=== PATIENT | male | born 1985 | race Caucasian/White ===

== ENCOUNTER → 2017-06-14 | Outpatient (CLI) | payer BC | LOC: FIMAGING 12:13 | PROVIDERS: ATTEND Family Medicine | DX: R07.89 Other chest pain (principal) ==

== ENCOUNTER → 2017-06-24 | Outpatient (CLI) | payer BC | LOC: FIMAGING 09:38 | PROVIDERS: ATTEND Surgery | DX: Q67.7 Pectus carinatum (principal); R93.7 Abnormal findings on diagnostic imaging of other parts of musculoskeletal system ==

== ENCOUNTER → 2017-06-28 | Outpatient (CLI) | payer BC | LOC: FIMAGING 15:52 | PROVIDERS: ATTEND Surgery | DX: Z09 Encounter for follow-up examination after completed treatment for conditions other than malignant neoplasm (principal); Q67.7 Pectus carinatum ==

== ENCOUNTER 2017-07-29 11:50 | Observation (INO) | payer BC ==
[2017-07-29] MEDS ORDERED: LR 1,000 ML IV ONE (14:19)
[2017-07-29] MEDS ORDERED: LIDOCAINE 1% 2 ML INJ ID PRN (14:19)
[2017-07-29] MEDS ORDERED: BUPIVACAINE 0.5% 30 ML SDV ONE (14:47)
--- NOTE | 2017-07-29 17:01 | PDHPUP ---
History & Physical Update H&P update statement: This history and physical update is based on an assessment of the patient which was completed after admission or registration (within 24 hours), but prior to the surgery/procedure. H&P update: H&P reviewed & patient examined, no change in patient's condition since H&P completed
--- NOTE | 2017-07-29 17:15 | PDANEPAE ---
ANE History of Present Illness Patient presents for right rib resection ANE Past Medical History - Cardiovascular History Hx Hypertension: No Hx Arrhythmias: No Hx Chest Pain: No Hx Coronary Artery / Peripheral Vascular Disease: No Hx CHF / Valvular Disease: No Hx Palpitations: No - Pulmonary History Hx COPD: No Hx Asthma/Reactive Airway Disease: Yes Hx Recent Upper Respiratory Infection: No Hx Oxygen in Use at Home: No Hx Sleep Apnea: No Sleep Apnea Screening Result - Last Documented: Negative Pulmonary History Comment: asthma- uses inhaler- instructed pt to bring to hospital. previous chest surgery for pectus carinatum - Neurologic History Hx Cerebrovascular Accident: No Hx Seizures: No Hx Dementia: No - Endocrine History Hx Diabetes: No - Liver History Hx Hepatic Disorders: No - Neurological & Psychiatric Hx Hx Neurological and Psychiatric Disorders: No - Cancer History Hx Cancer: No - Congenital Disorder History Hx Congenital Disorders: No - GI History Hx Gastrointestinal Disorders: No - Other Health History Other Health History: none - Chronic Pain History Chronic Pain: Yes (chest pain) - Surgical History Prior Surgeries: previous chest surgery in 2004 for pectus carinatum ANE Review of Systems Review of Systems: - Exercise capacity Exercise capacity: >=4 METS METS (RN): 4 METS ANE Patient History - Allergies Allergies/Adverse Reactions: wheat Allergy (Verified 07/29/17 14:28) Other-Enter Comments - Home Medications Home medications: home medication list seen and reviewed Home Medications: Albuterol [Proventil Inhaler HFA (*)] 1 - 2 puffs IH Q4 PRN 07/19/17 [Last Taken 07/22/17] Ferrous Sulfate [Ferrous Sulf 325 MG (*)] 325 mg PO DAILY 07/19/17 [Last Taken 07/22/17] Multivitamins [Multivitamin (*)] 1 each PO DAILY 07/19/17 [Last Taken 07/22/17] [place]-3 Fatty Acids [Fish Oil 1000 mg (*)] 1,000 mg PO DAILY 07/19/17 [Last Taken 07/22/17] - NPO status NPO Status: no food or drink >8 hours NPO Since - Liquids (Date): 07/29/17 NPO Since - Liquids (Time): 09:00 NPO Since - Solids (Date): 07/28/17 NPO Since - Solids (Time): 20:00 - Anes Hx Anes Hx: no prior problems - Smoking Hx Smoking Status: Never smoked - Family Anes Hx Family Hx Anesthesia Complications: none ANE Labs/Vital Signs - Vital Signs Blood Pressure: 163/96 Heart Rate: 77 Respiratory Rate: 18 O2 Sat (%): 98 Height: 185.42 cm Weight: 95.254 kg ANE Physical Exam - Airway Neck exam: FROM Mallampati Score: Class 1 - Pulmonary Pulmonary: no respiratory distress - Cardiovascular Cardiovascular: regular rate and rhythym - ASA Status ASA Status: II ANE Anesthesia Plan Anesthesia Plan: general endotracheal anesthesia (RBA discussed)
[2017-07-29] MEDS ORDERED: ONDANSETRON 4 MG/2 ML VIAL IVP PRN ×2 (17:47→19:21)
[2017-07-29] MEDS ORDERED: ZOLPIDEM TARTRATE 5 MG TAB PO PRN (17:47)
[2017-07-29] MEDS ORDERED: ALBUTEROL 60 PUFFS/8 GM MDI IH PRN (17:49)
[2017-07-29] MEDS ORDERED: fentaNYL 100 MCG/2 ML INJ ONE ×2 (17:51→18:41)
[2017-07-29] MEDS ORDERED: PROPOFOL 200 MG/20 ML VIAL ONE ×2 (17:51→18:10)
--- NOTE | 2017-07-29 17:51 | POSTOPPROG ---
Post Op Note Date of Operation: 07/29/17 Surgeon: Jensen Izaguirre Anesthesiologist: Fran Day Anesthesia: GET(General Endotracheal) Pre-op Diagnosis: pectus carinatum Post-op Diagnosis: same Indication: painful rib nonunion Procedure: left chest partial rib resection, multi ICN block Inf/Abcess present in the surg proc area at time of surgery?: No EBL: Minimal Specimen(s): none
[2017-07-29] MEDS ORDERED: ROCURONIUM 50 MG/5 ML VIAL ONE (17:53)
[2017-07-29] MEDS ORDERED: LIDOCAINE 2% 5 ML SDV ONE (17:53)
[2017-07-29] MEDS ORDERED: PROPOFOL/EMULSION 500 MG/50 ML BOTTLE IV ONE (18:17)
[2017-07-29] MEDS ORDERED: fentaNYL 100 MCG/2 ML INJ IVP PRN (19:21)
[2017-07-29] MEDS ORDERED: oxyCODONE IR 5 MG TAB PO PRN (19:21)
[2017-07-29] MEDS ORDERED: HYDROCODONE/APAP 5/325 TAB PO PRN (19:21)
[2017-07-29] MEDS ORDERED: NALOXONE HCL 0.4 MG/ML INJ IVP PRN (19:21)
[2017-07-29] MEDS ORDERED: LR 500 ML IV PRN (19:21)
[2017-07-29] MEDS ORDERED: DEXAMETHASONE 4 MG/ML VIAL ONE (19:24)
[2017-07-29] MEDS ORDERED: ONDANSETRON 4 MG/2 ML VIAL ONE (19:24)
[2017-07-29] MEDS ORDERED: KETOROLAC 30 MG/1 ML SDV ONE (19:24)
[2017-07-29] MEDS ORDERED: SUGAMMADEX SODIUM 200 MG/2 ML VIAL IVP ONE (19:25)
--- NOTE | 2017-07-29 19:57 | POSTANESTH ---
Post Anesthetic Evaluation Cardiovascular Status: Similar to Pre-Op Cond Respiratory Status: Similar to Pre-op Cond. Level of Consciousness/Mental Status: Moderately Sleepy Pain Control: Adequate, Prn Tx Ordered Nausea/Vomiting Control: Adequate, Prn Tx Ordered Complications Possibly Related to Anesthesia: None Noted
[2017-07-29] MEDS: HYDROmorphone HCL/NS 0.5 MG/ML SYR IVP PRN ×2 (21:11→22:21)
[2017-07-29] MEDS: KETOROLAC 15 MG/1 ML SDV IVP SCH ×2 (21:32→23:24)
[2017-07-30] MEDS: HYDROmorphone HCL/NS 0.5 MG/ML SYR IVP PRN ×2 (01:35)
[2017-07-30] MEDS: KETOROLAC 15 MG/1 ML SDV IVP SCH ×2 (05:19→10:58)
--- NOTE | 2017-07-30 07:06 | GOP ---
[f rep st] OPERATIVE REPORT DATE OF OPERATION: 07/29/2017 SURGEON: Jensen Izaguirre MD ANESTHESIA: General. ANESTHESIOLOGIST: Dr. Alcala. PREOPERATIVE DIAGNOSIS: Pectus carinatum. POSTOPERATIVE DIAGNOSIS: Pectus carinatum. PROCEDURE PERFORMED: Partial rib resection, multilevel intercostal nerve block, bone autograft place ment. FINDINGS: INDICATIONS: A 31-year-old male with a significant history for a pectus carinatum. He underwent ope n repair many years ago. 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 He is undergoing a partial rib resecti on at this time. Surgical risks and benefits explained were bleeding, infection, failure to resolve symptoms, epigastric hernia formation, chest wall instability, pneumothorax, pericardial injury, as w ell as others. All questions were answered. He desires to proceed. DESCRIPTION OF PROCEDURE: General anesthesia was induced. The lower sternum was infiltrated with 0. 5% Marcaine. The prior incision was reopened and extended inferiorly. The pec major muscle was sepa rated off the sternum. The upper portion of the midline fascia overlying the reconstructed xiphoid p rocess was partially opened using an elevator, soft tissues are off the lower most sternum as well as left parasternal bony constructs. The patient's lower most rib segments had a common orig in at the lower sternum. There was evidence of old suture material here. With blunt palpation this segment of bone was noted to be flail and non-joined as the ribs coursed inferolateral. There was al so overlap of the bifid xiphoid remnants that also overlapped those rib segments. The xiphoid was co mpletely taken back using a rongeur to the bifurcation of the parasternal rib borders. The lower mos t rib construct was circumferentially encompassed, with neurovascular bundle was left behind and usin g a rongeur a 2 cm separation was left between the sternal edge and the lower segment rib panel. Sat isfactory hemostasis was assured. The pericardium and pleura were not violated at any points nor was the abdominal cavity but was presumed to be all overlapping segments were felt have been completely decompressed. All residual bone fragment was all broken up and replaced into the voids to act as a b one autograft. A multilevel intercostal nerve block was applied throughout the lower chest wall. Th e wound was closed in layers with Vicryl suture. The skin was closed with Monocryl suture followed b y Dermabond. The patient was extubated in the operating room and taken to recovery uneventfully. /[id number]/MODL
[2017-07-30] MEDS: oxyCODONE IR 5 MG TAB PO PRN ×3 (08:15→12:13)
[2017-07-30] MEDS ORDERED: OMEGA-3 FATTY ACIDS 1,000 MG CAP PO SCH (09:00)
[2017-07-30] MEDS ORDERED: MULTIVITAMINS 1 EACH TAB PO SCH (09:00)
[2017-07-30] MEDS ORDERED: FERROUS SULFATE 325 MG TAB PO SCH (09:00)
[2017-07-30 10:20] VITALS: BP 134/88
--- NOTE | 2017-07-30 10:23 | SOAPPROG ---
SOAP Progress Note Assessment/Plan: Assessment:no overnight events. pain controlled. no sob. avss. comfortable. incis clean. doing well. home today. Plan: 07/30/17 10:22 Objective: Vital Signs Temp Pulse Resp BP Pulse Ox 37.3 C 69 18 134/88 H 94 07/30/17 10:19 07/30/17 10:19 07/30/17 10:19 07/30/17 10:19 07/30/17 10:19 07/29/17 07/30/17 07/31/17 05:59 05:59 05:59 Intake Total 825 Output Total 880 Balance -55 ICD10 Worksheet Patient Problems: Problems Problem Status Onset Pectus carinatum Acute
--- NOTE | 2017-07-30 11:05 | ASMTCMCOM ---
CM Note CM Note Notes: Dc order recieved. Anticipate dc home independently. CM available if needs/changes. Date Signed: 07/30/2017 11:05 AM Electronically Signed By:Katy Quiroz RN
--- NOTE | 2017-07-30 11:07 | ASMTLACE ---
SHAE Length of stay for Answers: 1 day current admission Acuity / Level of Answers: No Care: Did the patient have an inpatient admission? # of Emergency department Answers: 0 visits in the last 6 months Score: 1 Date Signed: 07/30/2017 11:06 AM Electronically Signed By:Katy Quiroz RN
[2017-07-30] MEDS ORDERED: PNEUMOCOCCAL 0.5ML VACCINE VIAL IM ONE (11:52)
== END 2017-07-30 12:30 | disposition home or self-care (01) ==
LOC: F3E 14:05
PROVIDERS: ADMIT Surgery; ATTEND Surgery
PROC: 0PB10ZZ Excision of 1 to 2 Ribs, Open Approach (ICD-10-PCS; principal; 2017-07-29 15:30)
DX: T81.32XS Disruption of internal operation (surgical) wound, not elsewhere classified, sequela (principal); Q67.7 Pectus carinatum; Z23 Encounter for immunization
CPT/HCPCS: 21600; 71045; 90471; G0378; G0009; J1100; J1170; J1885; J2405; J2704; J3010

== ENCOUNTER 2017-08-14 22:22 | Emergency (ER) | payer BC ==
[2017-08-14] MEDS ORDERED: IOPAMIDOL (ISOVUE-300) 100 ML BTL ONE (23:24)
[2017-08-14 23:26] LABS: PLATELET COUNT 295 10^3/uL (150-400)
--- NOTE | 2017-08-15 00:08 | EDPHY ---
H & P Time Seen by Provider: 08/14/17 22:53 HPI/ROS: CHIEF COMPLAINT: Purulent drainage from incision HISTORY OF PRESENT ILLNESS: 31-year-old male presents to the emergency department with concerns about purulent drainage from his surgical incision. The patient has a history of pectus carinatum and had a recent surgical revision [address] Jensen Izaguirre. The patient was doing well still taking anti-inflammatories and oxycodone for pain but noticed that he was developing more pain and some swelling and then noticed some redness to the incision yesterday. Today when he was bending over the shower he felt pus express from his incision. He denies any other chest pain or difficulty breathing. Denies abdominal pain. No known fevers or chills. REVIEW OF SYSTEMS: Constitutional: No fever, no chills. Eyes: No double or blurry vision. ENT: No sore throat. Respiratory: No cough, no shortness of breath. Cardiac: No chest pain. Gastrointestinal: No abdominal pain, vomiting or diarrhea. Genitourinary: No dysuria. Musculoskeletal: No neck or back pain. Skin: No rashes. Neurological: No headache. Past Medical/Surgical History: pectus carinatum surgery in 2004 and revision [address] Jensen Izaguirre. Social History: Single Smoking Status: Never smoked Physical Exam: General Appearance: Alert, no distress. Afebrile. Eyes: Pupils equal and round. Extraocular motions are all intact. ENT: Mouth: Mucous membranes moist. Respiratory: No wheezing, rhonchi, or rales, lungs are clear to auscultation. Cardiovascular: Regular rate and rhythm. Gastrointestinal: Abdomen is soft and nontender, no masses, no rebound or guarding, bowel sounds normal. Neurological: Alert and oriented x 3, cranial nerves II through XII grossly intact Skin: Healing midline surgical incision over the sternum. The more distal and the incision is tender with surrounding erythema some mild induration. He does have purulent drainage that is expressed with palpation. Wound culture is obtained and is pending. Musculoskeletal: Nontender to palpate along the cervical, thoracic or lumbar spine. Neck is supple. Extremities: Full range of motion and no peripheral edema. Psychiatric: Patient is oriented X 3, there is no agitation. Constitutional: Initial Vital Signs Temperature (C) 36.6 C 08/14/17 22:31 Heart Rate 75 08/14/17 22:31 Respiratory Rate 16 08/14/17 22:31 Blood Pressure 158/89 H 08/14/17 22:31 O2 Sat (%) 97 08/14/17 22:31 O2 Delivery Mode Room Air Allergies/Adverse Reactions: wheat Allergy (Verified 07/29/17 14:28) Other-Enter Comments Home Medications: Medication Instructions Recorded Albuterol [Proventil Inhaler HFA 1 - 2 puffs IH Q4 PRN 07/19/17 (*)] Ferrous Sulfate [Ferrous Sulf 325 325 mg PO DAILY 07/19/17 MG (*)] Multivitamins [Multivitamin (*)] 1 each PO DAILY 07/19/17 [place]-3 Fatty Acids [Fish Oil 1000 1,000 mg PO DAILY 07/19/17 mg (*)] oxyCODONE IR [Oxycodone Ir (*)] 5 - 15 mg PO Q3HRS PRN #30 tab 07/30/17 Cephalexin [Keflex] 500 mg PO QID #28 cap 08/15/17 Medical Decision Making - Diagnostics Imaging Results: Imaging Impressions Chest CT 08/14/17 23:05 Impression: 1. Left anterior chest wall edema in the surgical site adjacent to the inferior lateral aspect of the sternum and fifth rib consistent with phlegmon/ inflammation of the chest wall given the history of draining pus. However no evidence of drainable abscess. 2. Left lobe hepatic hemangioma. 3. No pneumonia, pleural effusion, pneumothorax, retrosternal fluid collection, or pericardial effusion. Findings and recommendations discussed with Emergency Department physician, CAITLYN CEJA at 23:54 hour, 08/14/2017. Final report concurs with initial preliminary interpretation. Imaging: Discussed imaging studies w/ call center agent Radiologist ED Course/Re-evaluation: 31-year-old male presents to the emergency department with concerns about possible infection from recent surgery. Patient's white blood cell count is 10.2. He is afebrile. CT imaging of the chest with IV contrast reveals soft tissue swelling noted to the anterior aspect of the chest with no drainable abscess. The case was discussed with Dr. Govind Marinelli, secondary supervising physician, who did not directly evaluate the patient but agrees with treatment and plan. 12:10 a.m.: I spoke with Dr. Fernandez, who was covering for Dr. Jensen Izaguirre, he agrees with IV Ancef and discharged with oral Keflex and will see the patient in the office Tuesday or Tuesday. Differential Diagnosis: Including but not limited to cellulitis, abscess, phlegmon, sepsis - Data Points Laboratory Results: Laboratory Results 08/14/17 23:20 18 08/14/17 23:20 23:18 WBC 10.27 10^3/uL H 10^3/uL (3.80-9.50) RBC 4.78 10^6/uL 10^6/uL (4.40-6.38) Hgb 13.6 g/dL L g/dL (13.7-17.5) POC Hgb 14.3 gm/dL gm/dL (13.7-17.5) Hct 40.3 % % (40.0-51.0) POC Hct 42 % % (40-51) MCV 84.3 fL fL (81.5-99.8) MCH 28.5 pg pg (27.9-34.1) MCHC 33.7 g/dL g/dL (32.4-36.7) RDW 13.3 % % (11.5-15.2) Plt Count 295 10^3/uL 10^3/uL (150-400) MPV 9.9 fL fL (8.7-11.7) Neut % (Auto) 68.7 % % (39.3-74.2) Lymph % (Auto) 21.0 % % (15.0-45.0) [place] % (Auto) 6.6 % % (4.5-13.0) Eos % (Auto) 2.8 % % (0.6-7.6) Baso % (Auto) 0.6 % % (0.3-1.7) Nucleat RBC Rel Count 0.0 % % (0.0-0.2) Absolute Neuts (auto) 7.05 10^3/uL H 10^3/uL (1.70-6.50) Absolute Lymphs (auto) 2.16 10^3/uL 10^3/uL (1.00-3.00) Absolute Monos (auto) 0.68 10^3/uL 10^3/uL (0.30-0.80) Absolute Eos (auto) 0.29 10^3/uL 10^3/uL (0.03-0.40) Absolute Basos (auto) 0.06 10^3/uL 10^3/uL (0.02-0.10) Absolute Nucleated RBC 0.00 10^3/uL 10^3/uL (0-0.01) Immature Gran % 0.3 % % (0.0-1.1) Immature Gran # 0.03 10^3/uL 10^3/uL (0.00-0.10) POC Sodium 141 mEq/L mEq/L (135-145) POC Potassium 4.0 mEq/L mEq/L (3.3-5.0) POC Chloride 103 mEq/L mEq/L (97-110) POC BUN 27 mg/dL H mg/dL (7-23) POC Creatinine 1.2 mg/dL mg/dL (0.7-1.3) POC Glucose 102 mg/dL H mg/dL (70-100) Point of Care Test Results: Chemistry 08/14/17 23:18 POC Sodium 141 mEq/L mEq/L (135-145) POC Potassium 4.0 mEq/L mEq/L (3.3-5.0) POC Chloride 103 mEq/L mEq/L (97-110) POC BUN 27 mg/dL H mg/dL (7-23) POC Creatinine 1.2 mg/dL mg/dL (0.7-1.3) POC Glucose 102 mg/dL H mg/dL (70-100) ISTAT H&H 08/14/17 23:18 POC Hgb 14.3 gm/dL gm/dL (13.7-17.5) POC Hct 42 % % (40-51) Departure - Departure Disposition: Home, Routine, Self-Care Clinical Impression: Cellulitis Qualifiers: Site of cellulitis: other site Qualified Code(s): L03.818 - Cellulitis of other sites Condition: Good Instructions: Cellulitis (ED) Additional Instructions: Call [phone] for the results of your wound culture in 48 hr. Keflex 500 mg 4 times daily for 1 week as directed. Call to arrange follow-up appointment to be seen by Dr. Izaguirre tomorrow. Referrals: Jensen Izaguirre MD [Medical Doctor] - 1 day without fail Prescriptions: Cephalexin [Keflex] 500 mg PO QID #28 cap
[2017-08-15] MEDS ORDERED: ceFAZolin 2 GM/DEXTROSE 100 ML IV ONE (00:10)
[2017-08-15 00:59] VITALS: BP 135/75
== END 2017-08-15 00:57 | disposition home or self-care (01) ==
DX: T81.4XXA Infection following a procedure, initial encounter (principal); Y82.8 Other medical devices associated with adverse incidents
CPT/HCPCS: 82435-PO; 82565-PO; 82947-PO; 84132-PO; 84295-PO; 84520-PO; 85014-PO; 96365; J0690; Q9967